=== PATIENT | male | born 1945 | race American Indian/Alaskan Native ===

== ENCOUNTER 2017-10-26 06:26 | Day surgery (SDC) | payer MEDICARE, BC ==
[2017-10-19 09:14] VITALS: BMI 30.4
[2017-10-26 07:00] VITALS: TEMP 98.2
[2017-10-26] MEDS ORDERED: Succinylcholine 200 mg/10 ml Inj IV ONE (07:43)
[2017-10-26] MEDS ORDERED: Midazolam 2 MG/2 ML VIAL ONE (07:43)
[2017-10-26] MEDS ORDERED: Propofol 10 mg/ml Inj (20 ML) ONE (07:43)
[2017-10-26] MEDS ORDERED: Sodium Chloride 0.9% 1,000 ML IV SCH (08:30)
[2017-10-26 09:06] VITALS: O2SAT 100
[2017-10-26 09:12] VITALS: PULSE 62; RESP 18
[2017-10-26 09:33] VITALS: BP 120/74
== END 2017-10-26 10:40 | disposition home or self-care (01) ==
LOC: ENDO 06:26
PROVIDERS: ATTEND Internal Medicine Gastroenterology
DX: Z12.11 Encounter for screening for malignant neoplasm of colon (principal); Z86.010 Personal history of colon polyps; K57.30 Diverticulosis of large intestine without perforation or abscess without bleeding; K64.8 Other hemorrhoids; K63.89 Other specified diseases of intestine; E11.9 Type 2 diabetes mellitus without complications; I10 Essential (primary) hypertension
CPT/HCPCS: 45378; 82948; J0330; J2250; J2704; J7040 ×2